=== PATIENT | male | born 2000 | race Caucasian/White ===

== ENCOUNTER 2020-11-14 21:12 | Inpatient (IN) ==
[2020-11-14 21:29] LABS: Basophils # 0.1 K/mcL (0.0-0.2); Basophils % 0.6 %; Eosinophils # 0.2 K/mcL (0.0-0.6); Hematocrit 45.7 % (37.5-50.1); Hemoglobin 15.7 g/dL (12.9-16.9); Immature Granulocytes % 0.4 % (0-4); Lymphocytes % 24.6 %; Mean Corpuscular HGB Conc 34.4 g/dL (31.6-35.5); Mean Corpuscular Hemoglobin 30.5 pg (28.0-33.3); Mean Corpuscular Volume 88.9 fL (83.0-100.0); Mean Platelet Volume 8.5 fL (9.4-12.4); Monocytes # 1.6 K/mcL (0.0-1.3); Monocytes % 9.8 %; Neutrophils # 10.2 K/mcL (1.6-8.9); Platelet Count 371 K/mcL (140-400); Red Blood Count 5.14 M/mcL (4.19-5.50); Red Cell Distribution Width 12.3 % (11.5-14.5); Segmented Neutrophils % 63.6 %; White Blood Count 16.1 K/mcL (4.3-11.1)
[2020-11-14 21:30] LABS: Bilirubin,Urine Negative (Negative); Blood,Urine Negative (Negative); Clarity,Urine Clear (Clear); Color,Urine Light-Yellow (Yellow); Glucose,Urine (UA) Normal (Normal); Ketones,Urine Negative (Negative); Leukocyte Esterase,Urine Negative (Negative); Nitrite,Urine Negative (Negative); Protein,Urine Trace mg/dL (Neg-Trace); Specific Gravity,Urine 1.016 (1.010-1.025); Urobilinogen,Urine Normal (Normal)
[2020-11-14 21:43] LABS: Amphetamine Screen,Urine Negative ng/mL (Cutoff=1000); Barbiturate Screen,Urine Negative ng/mL (Cutoff=200); Benzodiazepines Screen,Urine Negative ng/mL (Cutoff=200); Cannabinoid Screen,Urine Positive ng/mL (Cutoff = 50); Cocaine Screen,Urine Negative ng/mL (Cutoff= 300); Opiate Screen,Urine Negative ng/mL (Cutoff=300); Phencyclidine Screen,Urine Negative ng/mL (Cutoff=25)
[2020-11-14 21:51] LABS: BUN/Creatinine Ratio 12 (6-26); Blood Urea Nitrogen 11 mg/dL (6-20); Carbon Dioxide 22 mEq/L (23-29); Chloride 103 mEq/L (98-107); Potassium 3.4 mEq/L (3.5-5.1); Sodium 136 mEq/L (136-145)
[2020-11-14 21:52] LABS: Acetaminophen < 10 mcg/mL (10-20); Calcium 9.5 mg/dL (8.6-10.3); Ethanol < 10 mg/dL (Less than 10); Glucose 93 mg/dL (70-105); Osmolality,Calculated 281 (280-300); Salicylate < 2.5 mg/dL (15.0-30.0); eGFR For African Americans > 60 (> 60); eGFR For Non-African Americans > 60 (> 60)
[2020-11-15] MEDS ORDERED: Haloperidol Lactate 5 MG/ML VIAL IM PRN (01:13)
[2020-11-15] MEDS ORDERED: *HR* LORazepam 2 MG/ML VIAL IM PRN (01:13)
[2020-11-15] MEDS ORDERED: *HR* LORazepam 1 MG TABLET PO PRN (01:13)
[2020-11-15] MEDS ORDERED: Mag Hydrox/Al Hydrox/Simeth 30 ML UDC PO PRN (01:13)
[2020-11-15] MEDS ORDERED: haloperidoL 5 MG TABLET PO PRN (01:13)
[2020-11-15] MEDS ORDERED: Acetaminophen 325 MG TABLET PO PRN (01:13)
[2020-11-15] MEDS ORDERED: MOM Conc 10 ML UD.LIQ PO PRN (01:13)
[2020-11-15] MEDS ORDERED: levETIRAcetam 250 MG TABLET PO ONE (01:45)
[2020-11-15] MEDS: traZODone 50 MG TABLET PO PRN (02:49)
[2020-11-15] MEDS: hydrOXYzine pamoate 25 MG CAPSULE PO PRN ×2 (02:49→21:11)
[2020-11-15] MEDS ORDERED: levETIRAcetam 250 MG TABLET PO SCH ×2 (12:00→15:13)
[2020-11-15] MEDS: ARIPiprazole 5 MG TABLET PO SCH (13:27)
[2020-11-15] MEDS: levETIRAcetam 250 MG TABLET PO SCH (17:35)
[2020-11-15] MEDS: Melatonin 3 MG TABLET PO SCH (20:14)
[2020-11-16] MEDS: levETIRAcetam 250 MG TABLET PO SCH ×2 (00:22→12:34)
[2020-11-16] MEDS: hydrOXYzine pamoate 25 MG CAPSULE PO PRN (03:43)
[2020-11-16] MEDS: ARIPiprazole 5 MG TABLET PO SCH (09:14)
[2020-11-16] MEDS: traZODone 50 MG TABLET PO PRN (20:28)
[2020-11-16] MEDS: Melatonin 3 MG TABLET PO SCH (20:28)
[2020-11-17] MEDS: levETIRAcetam 250 MG TABLET PO SCH ×2 (00:04→12:42)
[2020-11-17] MEDS: hydrOXYzine pamoate 25 MG CAPSULE PO PRN ×2 (03:45→09:13)
[2020-11-17] MEDS: ARIPiprazole 5 MG TABLET PO SCH (08:43)
[2020-11-17 09:14] VITALS: BP 138/103
[2020-11-17] MEDS ORDERED: FLU Vac QV 20-21 (6Month+)/PF 0.5 ML SYRINGE IM ONE (12:42)
== END 2020-11-17 14:05 | disposition home or self-care (01) | DRG 885 ==
LOC: EMEROOARM 21:12 → SUATTDRO 23:51 → 1ANU 23:51
PROVIDERS: ADMIT Psychiatry & Neurology Psychiatry; ATTEND Psychiatry & Neurology Psychiatry

== ENCOUNTER 2022-03-02 15:23 | Observation (INO) ==
[2022-03-02] MEDS ORDERED: 0.9 % Sodium Chloride 1,000 ML IVC ONE (17:02)
[2022-03-02] MEDS ORDERED: Ondansetron 4 MG/2 ML VIAL IVP ONE ×2 (17:03→18:15)
[2022-03-02 17:26] LABS: Basophils % 0.3 %; Immature Granulocytes % 0.8 % (0-4); Mean Corpuscular Hemoglobin 31.2 pg (28.0-33.3); Red Cell Distribution Width 12.2 % (11.5-14.5)
[2022-03-02 17:27] LABS: Basophils # 0.1 K/mcL (0.0-0.2); Hematocrit 48.1 % (37.5-50.1); Hemoglobin 17.2 g/dL (12.9-16.9); Lymphocytes # 1.5 K/mcL (0.6-4.6); Lymphocytes % 5.1 %; Mean Corpuscular HGB Conc 35.8 g/dL (31.6-35.5); Mean Corpuscular Volume 87.1 fL (83.0-100.0); Mean Platelet Volume 9.4 fL (9.4-12.4); Monocytes # 1.8 K/mcL (0.0-1.3); Monocytes % 6.2 %; Neutrophils # 25.7 K/mcL (1.6-8.9); Platelet Count 362 K/mcL (140-400); Red Blood Count 5.52 M/mcL (4.19-5.50); Segmented Neutrophils % 87.6 %; White Blood Count 29.3 K/mcL (4.3-11.1)
[2022-03-02 17:43] LABS: Large Platelets Present (Not Present); Platelet Estimate Normal (Normal)
[2022-03-02 17:46] LABS: Alanine Aminotransferase 11 Units/L (7-52); Albumin 4.9 g/dL (3.5-5.7); Albumin/Globulin Ratio 1.6 (1.1-2.2); Alkaline Phosphatase 63 Units/L (34-104); Aspartate Amino Transferase 13 Units/L (13-39); BUN/Creatinine Ratio 13 (6-26); Bilirubin,Total 0.9 mg/dL (0.3-1.0); Blood Urea Nitrogen 14 mg/dL (6-20); Calcium 10.1 mg/dL (8.6-10.3); Carbon Dioxide 19 mEq/L (23-29); Chloride 103 mEq/L (98-107); Globulin 3.1 g/dL (2.4-3.5); Glucose 157 mg/dL (70-105); Osmolality,Calculated 294 (280-300); Phosphorous < 1.0 mg/dL (2.7-4.5); Sodium 140 mEq/L (136-145); eGFR For African Americans > 60 (> 60); eGFR For Non-African Americans > 60 (> 60)
[2022-03-02] MEDS ORDERED: levETIRAcetam 1,000 MG in 0.9 % Sodium Chloride 100 ML IVPB ONE (17:57)
[2022-03-02] MEDS ORDERED: Naloxone 0.4 MG/ML INJ IVP PRN (18:14)
[2022-03-02] MEDS ORDERED: Isovue-370 500 ML BOTTLE IVP ONE (18:15)
[2022-03-02] MEDS ORDERED: Metoclopramide 10 MG/2 ML VIAL IVP ONE ×2 (18:44→19:15)
[2022-03-02 22:01] LABS: Bilirubin,Urine Negative (Negative); Blood,Urine Negative (Negative); Clarity,Urine Clear (Clear); Color,Urine Colorless (Yellow); Glucose,Urine (UA) Normal (Normal); Ketones,Urine 40 mg/dL (Negative); Leukocyte Esterase,Urine Negative (Negative); Nitrite,Urine Negative (Negative); PH,Urine 8.5 pH Units (5.0-8.0); Protein,Urine 30 mg/dL (Neg-Trace); RBC,Urine 0-3 per hpf (0-3); Specific Gravity,Urine > 1.030 (1.010-1.025); Urobilinogen,Urine Normal (Normal); WBC,Urine 0-3 per hpf (0-3)
[2022-03-02] MEDS ORDERED: traZODone 50 MG TABLET PO PRN (23:02)
[2022-03-03] MEDS ORDERED: traZODone 50 MG TABLET PO ONE (01:14)
[2022-03-03] MEDS ORDERED: Ondansetron ODT 4 MG TAB.RAPDIS SL ONE (01:14)
[2022-03-03 02:53] LABS: Amphetamine Screen,Urine Negative ng/mL (Cutoff=1000); Barbiturate Screen,Urine Negative ng/mL (Cutoff=200); Benzodiazepines Screen,Urine Negative ng/mL (Cutoff=200); Cannabinoid Screen,Urine Positive ng/mL (Cutoff = 50); Cocaine Screen,Urine Negative ng/mL (Cutoff= 300); Opiate Screen,Urine Negative ng/mL (Cutoff=300); Phencyclidine Screen,Urine Negative ng/mL (Cutoff=25)
[2022-03-03] MEDS ORDERED: Melatonin 3 MG TABLET PO ONE (04:32)
[2022-03-03 05:34] LABS: Basophils % 0.2 %; Hematocrit 43.6 % (37.5-50.1); Hemoglobin 15.2 g/dL (12.9-16.9); Immature Granulocytes % 0.5 % (0-4); Lymphocytes # 2.3 K/mcL (0.6-4.6); Lymphocytes % 9.6 %; Mean Corpuscular HGB Conc 34.9 g/dL (31.6-35.5); Mean Corpuscular Hemoglobin 31.1 pg (28.0-33.3); Mean Corpuscular Volume 89.3 fL (83.0-100.0); Mean Platelet Volume 10.1 fL (9.4-12.4); Monocytes # 2.2 K/mcL (0.0-1.3); Monocytes % 9.1 %; Platelet Count 305 K/mcL (140-400); Red Blood Count 4.88 M/mcL (4.19-5.50); Red Cell Distribution Width 12.5 % (11.5-14.5); Segmented Neutrophils % 80.6 %; White Blood Count 23.5 K/mcL (4.3-11.1)
[2022-03-03 05:58] LABS: Alanine Aminotransferase 8 Units/L (7-52); Albumin 4.6 g/dL (3.5-5.7); Albumin/Globulin Ratio 1.8 (1.1-2.2); Alkaline Phosphatase 58 Units/L (34-104); Aspartate Amino Transferase 14 Units/L (13-39); BUN/Creatinine Ratio 11 (6-26); Bilirubin,Total 0.8 mg/dL (0.3-1.0); Blood Urea Nitrogen 11 mg/dL (6-20); Calcium 9.2 mg/dL (8.6-10.3); Carbon Dioxide 18 mEq/L (23-29); Chloride 108 mEq/L (98-107); Globulin 2.5 g/dL (2.4-3.5); Glucose 83 mg/dL (70-105); Osmolality,Calculated 295 (280-300); Phosphorous 5.8 mg/dL (2.7-4.5); Potassium 3.4 mEq/L (3.5-5.1); Sodium 143 mEq/L (136-145); Total Protein 7.1 g/dL (6.4-8.9); eGFR For African Americans > 60 (> 60); eGFR For Non-African Americans > 60 (> 60)
[2022-03-03 07:17] VITALS: BP 129/71; PULSE 62; TEMP 98.2; O2SAT 97
[2022-03-03] MEDS ORDERED: hydrOXYzine pamoate 25 MG CAPSULE PO PRN (07:53)
[2022-03-03] MEDS ORDERED: Nicotine 21 MG PATCH.TD24 TD SCH (09:00)
[2022-03-03 21:13] LABS: Enterococcus faecalis by PCR Not Detected (Not Detect)
[2022-03-03 21:14] LABS: A.calcoaceticus-baumannii cplx Not Detected (Not Detect); Bacteroides fragilis by PCR Not Detected (Not Detect); Candida albicans by PCR Not Detected (Not Detect); Candida auris by PCR Not Detected (Not Detect); Candida glabrata by PCR Not Detected (Not Detect); Candida krusei by PCR Not Detected (Not Detect); Candida parapsilosis by PCR Not Detected (Not Detect); Candida tropicalis by PCR Not Detected (Not Detect); Crypto. neoformans/gattii PCR Not Detected (Not Detect); Enterobacter cloacae Cmplx PCR Not Detected (Not Detect); Enterobacterales by PCR Not Detected (Not Detect); Enterococcus faecium by PCR Not Detected (Not Detect); Escherichia coli by PCR Not Detected (Not Detect); Klebs. pneumoniae group by PCR Not Detected (Not Detect); Klebsiella aerogenes by PCR Not Detected (Not Detect); Klebsiella oxytoca by PCR Not Detected (Not Detect); Proteus by PCR Not Detected (Not Detect); Pseudomonas aeruginosa by PCR Not Detected (Not Detect); Salmonella species by PCR Not Detected (Not Detect); Serratia marcescens by PCR Not Detected (Not Detect); Staph epidermidis by PCR Not Detected (Not Detect); Staph lugdunensis by PCR Not Detected (Not Detect); Staphylococcus aureus by PCR Not Detected (Not Detect); Staphylococcus by PCR DETECTED (Not Detect); Stenotrophomonas maltophilia Not Detected (Not Detect); Streptococcus agalactiae(B)PCR Not Detected (Not Detect); Streptococcus by PCR Not Detected (Not Detect); Streptococcus pneumoniae PCR Not Detected (Not Detect); Streptococcus pyogenes (A) PCR Not Detected (Not Detect)
== END 2022-03-03 11:12 | disposition home or self-care (01) ==
LOC: 3BNU 15:23 → EMEROOARM 15:23 → SUATTDRO 18:32 → 3BNU 20:38
PROVIDERS: ADMIT Hospitalist; ATTEND Internal Medicine